=== PATIENT | male | born 1950 | race Caucasian/White ===

== ENCOUNTER → 2017-01-17 | Outpatient (REF) | LOC: ZLAB.WCH 10:26 | DX: Z01.89 Encounter for other specified special examinations (principal) ==

== ENCOUNTER 2017-06-16 13:38 | Day surgery (SDC) | payer MEDICARE, OTHER ==
[~2017-06-16] VITALS: Ht 175.4 cm; Wt 88.1 kg
[2017-06-16 14:09] VITALS: BP 147/108; PULSE 73; TEMP 97.5
[2017-06-16] MEDS ORDERED: FLOMAX 0.40.4 MG/CAP PO (14:26)
[2017-06-16] MEDS ORDERED: PRIL40 PO (14:26)
[2017-06-16] MEDS ORDERED: ZOCOR 20MG20 MG PO (14:26)
[2017-06-16] MEDS ORDERED: GLUCOSAMINE & C1 CA2 PO (14:27)
[2017-06-16] MEDS ORDERED: MULTIPLE VITAMI1 CAP PO (14:27)
[2017-06-16 17:53] VITALS: BP 164/96; PULSE 58; TEMP 98.9
[2017-06-16 23:00] VITALS: BP 118/68; PULSE 55
[2017-06-16 23:15] VITALS: BP 118/64; PULSE 70
[2017-06-16 23:30] VITALS: BP 116/65; PULSE 58
[2017-06-16 23:45] VITALS: BP 119/68; PULSE 66
[2017-06-17] VITALS (7 sets, daily range): BP systolic 117–144; BP diastolic 66–79; PULSE 59–92; TEMP 98.2–98.4
== END 2017-06-17 11:00 | disposition home or self-care (01) ==
LOC: SDCO 13:38 → SURG 17:45 → SDCO 06-17 11:00
DX: N42.0 Calculus of prostate (principal); N32.0 Bladder-neck obstruction; I10 Essential (primary) hypertension; Z87.442 Personal history of urinary calculi
CPT/HCPCS: OP; J0690; J1100; J1885; J2250; J2405; J2704; J2765; J3010; J3480; J7030; J7120

== ENCOUNTER → 2019-07-23 | Outpatient (CLI) | payer MEDICARE, OTHER ==
[~2019-07-23] MED LIST: FLOMAX 0.40.4 MG/CAP PO; GLUCOSAMINE & C1 CA2 PO; MULTIPLE VITAMI1 CAP PO; PRIL40 PO; ZOCOR 20MG20 MG PO
== END ==
LOC: COL.RAD 08:34
DX: N43.3 Hydrocele, unspecified (principal)